=== PATIENT | female | born 1975 | race Caucasian/White ===

== ENCOUNTER 2020-02-15 15:45 | Outpatient (CLI) | payer OTHER, SELFPAY ==
--- NOTE | ~2020-02-15 | MM_ITS ---
EXAMINATION: MM screening cristóbal BI w vern HISTORY: Screening TECHNIQUE: Craniocaudal and mediolateral oblique 3-D tomosynthesis images were obtained and synthetic 2-D images were generated. CAD analysis was submitted and interpreted. COMPARISON: Comparison to multiple prior studies sequentially, with oldest reviewed study dated 05/2017. BREAST PARENCHYMAL COMPOSITION: The breasts are extremely dense, which lowers the sensitivity of mamm ography. FINDINGS: There is no evidence of suspicious mass, calcification, or architectural distortion to sugg est malignancy in either breast. There has been no suspicious interval change. IMPRESSION: 1. No mammographic evidence of malignancy. 2. Recommend routine screening mammography in one year. BI-RADS Category 1: Negative Reviewed, dictated and finalized at location A.
== END 2020-02-15 15:46 | disposition home or self-care (01) ==
LOC: ANHIMG 15:47
PROVIDERS: PCP Internal Medicine; Visit Provider Obstetrics & Gynecology
DX: Z12.31 Encounter for screening mammogram for malignant neoplasm of breast (principal)
CPT/HCPCS: 77063; 77067

== ENCOUNTER 2021-02-16 15:44 | Outpatient (CLI) | payer OTHER, SELFPAY ==
--- NOTE | ~2021-02-16 | MM_ITS ---
EXAMINATION: MM screening cristóbal BI w vern HISTORY: Screening mammogram TECHNIQUE: Craniocaudal and mediolateral oblique 3-D tomosynthesis images were obtained and synthetic 2-D images were generated. CAD analysis was submitted and interpreted. COMPARISON: 02/15/2020, 01/20/2019, 12/10/2017 bilateral digital screening mammogram examinations BREAST PARENCHYMAL COMPOSITION: The breasts are heterogeneously dense, which may obscure small masses . FINDINGS: There is no evidence of suspicious mass, calcification, or architectural distortion to sugg est malignancy in either breast. There has been no suspicious interval change. IMPRESSION: 1. No mammographic evidence of malignancy. 2. Recommend routine screening mammography in one year. BI-RADS Category 1: Negative Reviewed, dictated and finalized at location A.
== END 2021-02-16 15:45 | disposition home or self-care (01) ==
LOC: ANHIMG 15:47
PROVIDERS: PCP Internal Medicine; Visit Provider Obstetrics & Gynecology
DX: Z12.31 Encounter for screening mammogram for malignant neoplasm of breast (principal)
CPT/HCPCS: 77063; 77067

== ENCOUNTER 2022-02-20 15:55 | Outpatient (CLI) | payer OTHER, SELFPAY ==
--- NOTE | ~2022-02-20 | MM_ITS ---
EXAMINATION: MM screening cristóbal BI w vern HISTORY: Screening TECHNIQUE: Craniocaudal and mediolateral oblique 3-D tomosynthesis images were obtained and synthetic 2-D images were generated. CAD analysis was submitted and interpreted. COMPARISON: Comparison to multiple prior studies sequentially, with oldest reviewed study dated 01/20. BREAST PARENCHYMAL COMPOSITION: The breasts are extremely dense, which lowers the sensitivity of mamm ography FINDINGS: There is a focal asymmetry with possible architectural distortion in the central aspect of the right breast on CC view, posteriorly. This is not well visualized on the MLO view. There are asym metry superiorly in the left breast on MLO view only. IMPRESSION: 1. New bilateral breast asymmetries. 2. Additional mammographic views and possible breast ultrasound are recommended. BI-RADS Category 0: Incomplete: Needs additional imaging evaluation. Reviewed, dictated and finalized at location A. IMPRESSION: 1. New bilateral breast asymmetries. 2. Additional mammographic views and possible breast ultrasound are recommended . BI-RADS Category 0: Incomplete: Needs additional imaging evaluation.
== END 2022-02-20 15:56 | disposition home or self-care (01) ==
LOC: ANHIMG 15:58
PROVIDERS: PCP Internal Medicine; Visit Provider Obstetrics & Gynecology
DX: Z12.31 Encounter for screening mammogram for malignant neoplasm of breast (principal); R92.8 Other abnormal and inconclusive findings on diagnostic imaging of breast
CPT/HCPCS: 77063; 77067

== ENCOUNTER 2022-03-01 13:02 | Outpatient (CLI) | payer OTHER, SELFPAY ==
--- NOTE | ~2022-03-01 | MMUS_ITS ---
EXAMINATION: MM diagnostic cristóbal BI w vern, US breast BI complete HISTORY: Follow-up breast asymmetries TECHNIQUE: Additional 3-D tomosynthesis images of the breasts were performed and synthetic 2-D images were generated. CAD analysis was submitted and interpreted. High resolution bilateral complete breas t ultrasound was performed. COMPARISON: Comparison to multiple prior studies sequentially, with oldest reviewed study dated 05/2017. BREAST PARENCHYMAL COMPOSITION: The breasts are extremely dense, which lowers the sensitivity of mamm ography FINDINGS: MAMMOGRAPHIC FINDINGS: And there are no suspicious masses, calcifications or architectural distortion in either breast to meadows ggest malignancy. Bilateral breast asymmetries compress with spot views. ULTRASOUND: Complete bilateral US of all 4 quadrants of the breasts and retroareolar region was reviewed. Normal heterogeneous echotexture throughout the right breast. In the left breast at 1:00, 4 cm from the nipp le there is a 3 mm cyst. No suspicious masses are identified in the left breast to suggest malignancy . IMPRESSION: 1. No evidence for malignancy in either breast. 2. Routine yearly screening mammogram and regular clinical breast examination are recommended. BI-RADS Category 2: Benign finding(s). Reviewed, dictated and finalized at location A. IMPRESSION: 1. No evidence for malignancy in either breast. 2. Routine yearly screening mammogram and regular clinical breast examination a re recommended. BI-RADS Category 2: Benign finding(s).
== END 2022-03-01 13:03 | disposition home or self-care (01) ==
LOC: ANHIMG 13:04
PROVIDERS: PCP Nurse Practitioner; Visit Provider Obstetrics & Gynecology
DX: R92.8 Other abnormal and inconclusive findings on diagnostic imaging of breast (principal)
CPT/HCPCS: 76641; 77062; 77066; G0279

== ENCOUNTER 2023-12-03 15:21 | Outpatient (CLI) | payer OTHER, SELFPAY ==
--- NOTE | ~2023-12-03 | MM_ITS ---
EXAMINATION: MM screening cristóbal BI w vern HISTORY: Screening TECHNIQUE: Craniocaudal and mediolateral oblique 3-D tomosynthesis images were obtained and synthetic 2-D images were generated. CAD analysis was submitted and interpreted. COMPARISON: Comparison to multiple prior studies sequentially, with oldest reviewed study dated 05/2017. BREAST PARENCHYMAL COMPOSITION: Dense: The breasts are heterogeneously dense, which may obscure small masses FINDINGS: There is no evidence of suspicious mass, calcification, or architectural distortion to sugg est malignancy in either breast. There has been no suspicious interval change. IMPRESSION: 1. No mammographic evidence of malignancy. 2. Recommend routine screening mammography in one year. BI-RADS Category 1: Negative Reviewed, dictated and finalized at location B.
== END 2023-12-03 15:22 | disposition home or self-care (01) ==
PROVIDERS: PCP Nurse Practitioner; Visit Provider Nurse Practitioner Family
DX: Z12.31 Encounter for screening mammogram for malignant neoplasm of breast (principal)
CPT/HCPCS: 77063; 77067

== ENCOUNTER 2025-01-17 15:10 | Outpatient (CLI) | payer OTHER, SELFPAY ==
--- OUTSIDE RECORDS SUMMARY | 2017-12-10 | XMS_ITS | Encounter Summary ---
Author Organization [facility] Healthcare Address [address] [place] [address] Care Team Providers Care Rn Visiting Name Role Phone Unavailable Primary Care Provider Unavailabl e Reason for Visit * Diagnostic Imaging (Routine) - Closed Specialty Diagnoses / Procedures Referred By Maurisio lundberg Referred To Contact Procedures Breast Imaging Screening Outside Reference Sudheer Palomo NP Phone: tel: fax: Referral ID Status Reason Start Date Expiration Date Visits Re quested Visits Authorized [id number] Closed 04/23/2022 05/23/2023 1 1 Encounter Details Date Type Department Care Team (Late st Contact Info) Description 12/10/2017 Hospital Encounter [facility] [address] [place] [id number] Social History Tobacco Use Types Packs/Day Years Used Date Smoking Tobacco: Never Smokeless Tobacco: Never AUDIT-C Answer Date Recorded Q1: How often do you have a drink containing alcohol? Never 11/22/2024 Q2: How many drinks containi ng alcohol do you have on a typical day when you are drinking? Patient does not drink Q3: How often do you have si x or more drinks on one occasion? Never 11/22/2024 PHQ-2 Answer Date Recorded PHQ-2 Total Score (If total score is 3 or more points, staff should administer the PHQ-9) 0 11/22/2024 Comments No Sex and Gender Information Value Date Recorded Sex Assigned at Not on file Legal Sex Female 8:55 AM PRESIDENT/[employer]IVE EXPERIENCES Gender Identity Female 05/16/2020 11:20 AM PRESIDENT[employer] Sexual Orientation Straight 05/16/2020 11 :20 AM PRESIDENT[employer]ENC[employer] documented as of this encounter Functional Status * AUDIT-C Score Answer Date of Assessment Author 0 11/22/2024 12:59 PM CDT Arianna Horn MA * Question Answer Date of Assessment Author Q1: How often do you have a drink containing alcohol? Never 11/22/2024 12:59 PM JENNIFERT Elena Horn MA Q2: How many drinks containing alcohol do you have on a typical day when you are drinking? Patient does not drink 11/22/2024 12:59 PM CDT Arianna Horn MA Q3: How often do you have six or more drinks on one occasion? Never 11/22/2024 12:59 PM JENNIFERT Elena Horn MA documented as of this encounter Plan of Treatment Not on file documented as of this encounter Procedures Procedure Name Priority Date/Time Associated Diagnosis Comments BREAST IMAGING MG SCREENING OUTSIDE REFERENCE Routine 12/10/2017 12:00 AM CDT documented in this encounter Results * Breast Imaging Screening Outside Reference (12/10/2017 12:00 AM CDT) Impressions [facility] - 04/23/2022 9:48 AM PRESIDENT[employer]ENC[employer] These images are for Reference purposes only and have not been reviewed by [facility] Radiology. There will be no report generated by a [facility] Radiologist. Narrative [facility] - 04/23/2022 9:48 AM PRESIDENT[employer] EXAMINATION: Images For Reference Purposes Only us Sudheer Palomo NP IMG MAMMO PROCEDURES Final Result [facility] documented in this encounter Visit Diagnoses Not on filedocumented in this encounter
--- OUTSIDE RECORDS SUMMARY | 2019-01-20 | XMS_ITS | Encounter Summary ---
Author Organization [facility] Healthcare Address [address] [place] [address] Care Team Providers Care Barber Shop Operator Name Role Phone Unavailable Primary Care Provider Unavailabl e Reason for Visit * Diagnostic Imaging (Routine) - Closed Specialty Diagnoses / Procedures Referred By Maurisio lundberg Referred To Contact Procedures Breast Imaging Screening Outside Reference Sudheer Palomo NP Phone: tel: fax: Referral ID Status Reason Start Date Expiration Date Visits Re quested Visits Authorized [id number] Closed 04/23/2022 05/23/2023 1 1 Encounter Details Date Type Department Care Team (Late st Contact Info) Description 01/20/2019 Hospital Encounter [facility]iology [facility] [address] [place] [id number] Social History Tobacco Use Types Packs/Day [...] on file Legal Sex Female 8:55 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 Radiology. There will be no report generated by a [facility] Radiologist. Narrative [facility] - 04/23/2022 9:48 AM TIRE GROOVER EXAMINATION: Images For Reference Purposes Only us Sudheer Palomo NP IMG MAMMO PROCEDURES Final Result [facility] documented in this encounter Visit Diagnoses Not on filedocumented in this encounter
--- OUTSIDE RECORDS SUMMARY | 2020-02-15 | XMS_ITS | Encounter Summary ---
Author Organization [facility] Healthcare Address [address] [place] [address] Care Team Providers Care Dietitian Helper Name Role Phone Unavailable Primary Care Provider Unavailabl e Reason for Visit * Diagnostic Imaging (Routine) - Closed Specialty Diagnoses / Procedures Referred By Maurisio lundberg Referred To Contact Procedures Breast Imaging Screening Outside Reference Sudheer Palomo NP Phone: tel: fax: Referral ID Status Reason Start Date Expiration Date Visits Re quested Visits Authorized [id number] Closed 04/23/2022 05/23/2023 1 1 Encounter Details Date Type Department Care Team (Late st Contact Info) Description 02/15/2020 Hospital Encounter [facility] Radiology [facility] [address] [place] [phone] Social History Tobacco Use Types Packs/Day [...] on file Legal 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 There will be no report generated by a [facility] Radiologist. Narrative [facility] - 04/23/2022 9:48 AM JET AIRCRAFT SERVICER EXAMINATION: Images For Reference Purposes Only us Sudheer Palomo NP IMG MAMMO PROCEDURES Final Result [facility] documented in this encounter Visit Diagnoses Not on filedocumented in this encounter
--- NOTE | ~2025-01-17 | MM_ITS ---
EXAMINATION: MM screening cristóbal BI w vern HISTORY: Screening TECHNIQUE: Craniocaudal and mediolateral oblique 3-D tomosynthesis images were obtained and synthetic 2-D images were generated. CAD analysis was submitted and interpreted. COMPARISON: Comparison to multiple prior studies sequentially, with oldest reviewed study dated , 12/10/2017 BREAST PARENCHYMAL COMPOSITION: The breasts are heterogeneously dense, which may obscure small masses. FINDINGS: There is no evidence of suspicious mass, calcification, or architectural distortion to suggest malignancy in either breast. IMPRESSION: 1. No mammographic evidence of malignancy. 2. Recommend routine screening mammography in one year. BI-RADS Category 1: Negative Reviewed, dictated and finalized at location B.
--- OUTSIDE RECORDS SUMMARY | 2025-01-17 15:13 | XMS_ITS | Clinical Summary ---
Author Organization [facility] Address [facility] [place] [address] Care Team Providers Care Mannequin Mold Maker Name Role Phone Unavailable Primary Care Provider Unavailabl e Allergies Active Allergy Reactions Criticality Noted Date Comments Codeine Itching Low 04/02/2005 Medications amphetamine-dextro amphetamine (ADDERALL) 20 MG tabletIndications: ADD (attention deficit disorder) without hyperactivity Take 1 tablet (20 mg total) by mouth 2 (two) times daily. Take 20mg in the morning and 20mg in the afternoon. May fill 08/06/24 60 tablet 5 Active levothyroxine (SYNTHROID) 75 MCG tabletIndications: Hypothyroidism, unspecified type TAKE 1 TABLET EVERY MORNING 90 tablet 5 Active buPROPion XL (WELLBUTRIN XL) 150 MG 24 hr tabletIndications: ADD (attention deficit disorder) without hyperactivity,Gene ralized anxiety disorder Take 1 tablet (150 mg total) by mouth daily. 90 tablet 1 5 Active sertraline (ZOLOFT) 50 MG tabletIndications: Generalized anxiety disorder TAKE 3 TABLETS DAILY 270 tablet 1 5 Active Active Problems Problem Noted Date Diagnosed Date Perimenopausal symptoms 08/30/2024 Overview (08/30/2024): Has noticed being more watson, not sleeping as well. Getting more right around her abdomen. She has an appointment coming up with her deli worker Dr. Sumner and will discuss further. She has tried [id number] supplements for perimenopausal symptoms. Assessment & Plan (08/30/2024 11:58 AM CDT): Encourage to focus on high-protein low-carb diet, encouraged to incorporate strength training into cardiovascular workouts as well. ADD (attention deficit disorder) without hyperac tivity 12/09/2016 Overview (08/30/2024): Chronic condition. Doing well with Adderall 20 mg twice a day and Wellbutrin 150 mg daily. Assessment & Plan (08/30/2024 12:01 PM CDT): Chronic condition. Controlled. No changes needed at this time. UDS will be completed today. Constipation 08/23/2013 Hypothyroid 08/23/2013 Overview (08/30/2024): Chronic condition. Controlled with levothyroxine 75 mcg daily. Assessment & Plan (08/30/2024 11:54 AM CDT): Chronic condition. Controlled. No changes needed at this time. Hyperlipemia 12/09/2006 Overview (08/30/2024): Diet controlled Assessment & Plan (08/30/2024 11:54 AM CDT): Encourage following a healthy well balance diet. Limit saturated and trans fats. Encourage to get plenty of lean meats in your diet and grilled fish. Recommend eating at least 2 servings of fruits and vegetables per day. Encourage to limit sugar, processed foods, and large amount of carbohydrates. Anxiety state 04/02/2005 Overview (08/30/2024): Chronic condition. Controlled with sertraline 150 mg daily. Denies SI/HI. Assessment & Plan (08/30/2024 11:53 AM CDT): Chronic condition, controlled. No changes needed at this time. Resolved Problems Problem Noted Date Diagnosed Date Resolved Date Insomnia 08/14/2016 08/30/2024 Encounters Date Type Department Care Team Description 10/25/2024 Orders Only [facility] Family Medicine - [place] [address] [place] [address] Cristina Goldberg NP from Last 3 Months Immunizations Immunization Administration Dates Next Due H1N1 Injectable 2009 Influenza 03/21/2009 Influenza (Generic) 02/18/2020, 5,04/12/2014,2011,02/13/2010,02/09/2009 Influenza Adult (Generic) 02/20/2022,06/2020,02/20/2020,2018,04/11/2017,05/22/2013 MODERNA COVID-19 (EMPLOYEE WELFARE MANAGER VARGHESE BLANQUITA), MRNA, LNP-S, PF, 50 MCG/ 0.25 ML DOSE 04/20/2021 PFIZER COVID-19 (ORIGINAL FORMULATION, PURPLE CAP) mRNA, LNP-S, PF, 30 MCG/0.3 ML DOSE 06/29/2020,06/05/2020 Tdap (Generic) 03/14/2011 Family History Medical History Relation Comments Heart Disease Father Cancer Maternal Grandmother Retardation/Learning Difficulties Son Relation Status Comments Father Maternal Grandmother Son Social History Tobacco Use Types Packs/Day Years Used Date Smoking Tobacco: Never Passive Smoke Exposure: Never Smokeless Tobacco: Never Tobacco Cessation:Counseling Given: No Alcohol Use Standard Drinks/Week Comments Not Currently 0 (1 standard drink = 0.6 oz pur e alcohol) PHQ-2 Answer Date Recorded Patient Health Questionnaire-2 Score 0 08/30/2024 Comments No Sex and Gender Information Value Date Recorded Sex Assigned at Female 08/30/2024 11:22 AM CDT Legal Sex Female 4:35 PM CDT Gender Identity Female 08/30/2024 11:22 AM CDT Sexual Orientation Not on file Last Filed Vital Signs Vital Sign Reading Time Taken Comments Blood Pressure 98/60 08/30/2024 11:25 AM CDT Pulse 58 08/30/2024 11:25 AM CDT Temperature 36.8 C (98.3 F) 08/30/2024 11:25 AM CDT Respiratory Rate 16 08/30/2024 11:25 AM CDT Oxygen Saturation 100% 08/30/2024 11:25 AM CDT Inhaled Oxygen Concentration - - Weight 58.1 kg (128 lb) 08/30/2024 11:25 AM CDT Height 165.1 cm (5' 5) 08/30/2024 11:25 AM CDT Body Mass Index 21.3 08/30/2024 11:25 AM CDT Plan of Treatment Health Maintenance Due Date Last Done Comments Cervical Cancer Screening Pa p Smear (Age 30 to 64) Every 3 Years 1977 Hepatitis B Vaccines (1 of 3 - 19+ 3-dose series) 1996 DTaP, Tdap and Td Vaccines ( 2 - Td or Tdap) 03/14/2021 03/14/2011 COVID-19 Vaccine (4 - 2024-2 6 season) 2025 04/20/2021, 06/29/2020, 06/05/2020 Annual Physical 08/30/2025 08/30/2024, 03/31/2023, 03/01/2022 Mammogram Screening 12/02/2025 12/03/2023, 03/01/2022 Colorectal Cancer Screening FIT-DNA (3 Years) 04/24/2026 04/24/2023, 04/24/2023 Cervical Cancer Screening Pa p with HPV Testing (Age 30 to 64) Every 5 Years 08/09/2029 08/09/2024, 06/25/2023 Cervical Cancer Screening wi HPV 08/09/2029 Hepatitis C Completed 03/09/2022 PHQ-2 (Physician [place]) Completed 08/30/2024 Meningococcal B Vaccine Aged Out No l onger eligible based on patient's age to complete this topic Meningococcal Vaccine Aged Out No leno lucy eligible based on patient's age to complete this topic Pneumococcal Vaccine: Pediatrics (0 to 5 Years) and At-Risk Patients (6 to 49 Years) Aged Out No longer eligible b ased on patient's age to complete this topic RSV Immunizations Under 20 Months Aged Out No longer eligible b ased on patient's age to complete this topic Procedures Procedure Name Priority Date/Time Associated Diagnosis Comments OUTSIDE CYTOPATH CERV/VAG INTERPRET (PAP) 08/09/2024 MAMMOGRAM GENERIC (SCAN ORDER) 12/03/2023 COLOGUARD (EXACT SCIENCE) Routine 04/24/2023 9:50 AM RESEARCH PROFESSOR OF BIOSTATISTICS Screen for colon cancer HEPATITIS C ANTIBODY W/RFX TO HCV RNA Routine 03/09/2022 8:45 AM CDT Need for hepatitis C screening test from Last 3 Months or Most Recently Relevant to Health Maintenance Results * PAP SMEAR WITH HPV (08/09/2024) 08/09/2024 [facility] Scanned SCANNING Final Resu lt * MAMMOGRAM GENERIC (SCAN ORDER) (12/03/2023) Anatomical Region Laterality Modality Other 12/03/2023 [employer] [facility] Scanned SCANNING Final Resu lt * COLOGUARD (EXACT SCIENCE) (04/24/2023 9:50 AM RESEARCH PROFESSOR OF BIOSTATISTICS) COLOGUARD RESULT Negative Negative [facility] (CLIA #:[id number]) Comment: NEGATIVE TEST RESULT. A negative Cologuard result indicates a low likelihood that a colorectal cancer (CRC) or advanced adenoma (adenomatous polyps with more advanced pre-malignant features) is present. The chance that a person with a negative Cologuard test has a colorectal cancer is less than 1 in 1500 (negative predictive value >99.9%) or has an advanced adenoma is less than 5.3% (negative predictive value 94.7%). These data are based on a prospective cross-sectional study of 10,000 individuals at average risk for colorectal cancer who were screened with both Cologuard and colonoscopy. (Jaimee Deng al, N Engl J Med 2014;370(14):6437-0371) The normal value (reference range) for this assay is negative. COLOGUARD RE-SCREENING RECOMMENDATION: Periodic colorectal cancer screening is an important part of preventive healthcare for asymptomatic individuals at average risk for colorectal cancer. Following a negative Cologuard result, the [place] Cancer Society and U.S. Multi-Society Task Force screening guidelines recommend a Cologuard re-screening interval of 3 years. References: [place] [employer] Guideline for Colorectal Cancer Screening: https://www.cancer.org/cancer/hciyl-jborjw-chjiid/zwbdbavat-lwfesvntz-uueumsq/ac s-rec ommendations.html.; Uli DK, Bebeto CR, Monica GregoryK, Colorectal Cancer Screening: Recommendations for Physicians and Patients from the U.S. Multi-Society Task Force on Colorectal Cancer Screening , Am J Gastroenterology 2017; 112:9340-2420. TEST DESCRIPTION: Composite algorithmic analysis of stool DNA-biomarkers with hemoglobin immunoassay. Quantitative values of individual biomarkers are not reportable and are not associated with individual biomarker result reference ranges. Cologuard is intended for colorectal cancer screening of adults of either sex, 45 years or older, who are at average-risk for colorectal cancer (CRC). Cologuard has been approved for use by the U.S. FDA. The performance of Cologuard was established in a cross sectional study of average-risk adults aged 50-84. Cologuard performance in patients ages 45 to 49 years was estimated by sub-group analysis of near-age groups. Colonoscopies performed for a positive result may find as the most clinically significant lesion: colorectal cancer [4.0%], advanced adenoma (including sessile serrated polyps greater than or equal to 1cm diameter) [20%] or non- advanced adenoma [31%]; or no colorectal neoplasia [45%]. These estimates are derived from a prospective cross-sectional screening study of 10,000 individuals at average risk for colorectal cancer who were screened with both Cologuard and colonoscopy. (Jaimee Deng al, N Engl J Med 2014;370(14):1420-0793.) Cologuard may produce a false negative or false positive result (no colorectal cancer or precancerous polyp present at colonoscopy follow up). A negative Cologuard test result does not guarantee the absence of CRC or advanced adenoma (pre-cancer). The current Cologuard screening interval is every 3 years. ([place] Cancer Society and U.S. Multi-Society Task Force). Cologuard performance data in a 10,000 patient pivotal study using colonoscopy as the reference method can be accessed at the following location: www.miLibris.Urge/results. Additional description of the Cologuard test process, warnings and precautions can be found at www.Shelfari.com. STOOL STOOL SPECIMEN / Unknown 04/24/2023 9:50 AM RESEARCH PROFESSOR OF BIOSTATISTICS 04/25/2023 6:36 PM RESEARCH PROFESSOR OF BIOSTATISTICS Cristina Goldberg CHIEF OF PLANNING BODY FLUIDS AND STOOLS OR DERABLES Final Result Performing Organization Address City/[facility]/ZIP Co de Phone Number [employer] ([facility]) [address] [place] [address], [facility] (CLIA #:[id number]) [address] [place] [address] * HEPATITIS C ANTIBODY W/RFX TO HCV RNA ([facility] ONLY) (03/09/2022 8:45 AM CDT) HEPATITIS C AB NON-REACTI VE NON-REACT AJITH [facility] SIGNAL TO CUTOFF 0.01 <[address] [facility] Comment: HCV antibody was non-reactive. There is no laboratory evidence of HCV infection. In most cases, no further action is required. However, if recent HCV exposure is suspected, a test for HCV RNA (test code 64243) is suggested. For additional information please refer to http://education.Just Sing It/faq/ZGV64b1 (This link is being provided for informational/ educational purposes only.) 03/09/2022 8:45 AM CDT 03/09/2022 8:46 AM CDT Narrative [facility] - 03/11/2022 4:22 PM CDT VARIFIED ALL INFO FASTING:YES FASTING: YES Cristina Goldberg CHIEF OF PLANNING LABORATORY Final Res ult Performing Organization Address City/[facility]/ZIP Co de Phone Number [facility] [address] [place] [phone] from Last 3 Months or Most Recently Relevant to Health Maintenance Insurance [facility]
--- OUTSIDE RECORDS SUMMARY | 2025-01-17 15:13 | XMS_ITS | Clinical Summary ---
Author Organization 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 Gender Identity Not on file Sexual Orientation Not on file Plan of Treatment Health Maintenance Due Date Last Done Comments Hepatitis C Virus (HCV) Screening 1977 TdaP Immunization 1977 Hepatitis B Immunization (1 of 3 - 19+ 3-dose series) 1996 Pap Smear 1998 Cervical Cancer Screening (CCS) 12/06/2007 HPV/Cotest 12/06/2007 Cologuard 2022 Colonoscopy 2022 Colorectal Cancer Screening 2022 Immunochemical Fecal Occult Blood 2022 Influenza Immunization (#1) 01/10/202502/09, 05/28/2018, 03/30/2015, Additional history exists SARS-COV-2 Immunization (2024- season) 2025 04/20/2021, 06/29/2020, 06/05/2020 Respiratory Syncytial Virus (RSV) Immunization (Adult) (1 - 1-dose 75+ series) 2052 Human Papillomavirus (HPV) Immunization Aged Out No longer eligible based on patient's age to complete this topic Meningococcal Immunization (ACWY) Aged Out No longer eligible based on patient's age to complete this topic Pneumococcal Immunization Combined Aged Out No longer eligible based on patient's age to complete this topic Rotavirus Immunization Aged Out No lo nger eligible based on patient's age to complete this topic
--- OUTSIDE RECORDS SUMMARY | 2025-01-17 15:13 | XMS_ITS | Encounter Summary ---
Author Organization [facility] Address 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 Female 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 Gender Identity Not on file Sexual Orientation Not on file documented as of this encounter Last Filed Vital Signs Vital Sign Reading Time Taken Comments Blood Pressure 110/70 12/09/2006 2:30 PM CDT Pulse - - Temperature - - Respiratory Rate - - Oxygen Saturation - - Inhaled Oxygen Concentration - - Weight 58.5 kg (129 lb) 12/09/2006 2:30 PM CDT Height 165.1 cm (5' 5) 12/09/2006 2:30 PM CDT Body Mass Index 21.47 12/09/2006 2:30 PM CDT documented in this encounter Plan of Treatment Not on file documented as of this encounter Visit Diagnoses Not on filedocumented in this encounter Care Teams Bicycle Racer Relationship Specialty Start Date End Date Gucci Zavala MD PCP - General 09/09/07 documented as of this encounter
--- OUTSIDE RECORDS SUMMARY | 2025-01-17 15:13 | XMS_ITS | Encounter Summary ---
Author Organization [facility] Address [address] [place] [address] Care Team Providers Care Bilingual Account Manager Name Role Phone Gucci Zavala MD Primary Care Provider [phone] Encounter Details Date Type Department Care Team (Late st Contact Info) Description 04/02/2005 Outpatient Historical [facility] Internal Medicine [address] [address] Gucci Zavala MD [address] [place] [phone] Social History Tobacco Use Types Packs/Day Years Used Date Smoking Tobacco: Never Assessed Comments Unknown Sex and Gender Information Value Date Recorded Sex Assigned at Not on file Legal Sex Female 3:21 AM FRUIT RANCHER Gender Identity Not on file Sexual Orientation Not on file documented as of this encounter Last Filed Vital Signs Vital Sign Reading Time Taken Comments Blood Pressure 112/70 04/02/2005 3:30 PM FRUIT RANCHER Pulse - - Temperature 36.4 C (97.6 F) 04/02/2005 3:30 PM FRUIT RANCHER Respiratory Rate - - Oxygen Saturation - - Inhaled Oxygen Concentration - - Weight 51.7 kg (114 lb) 04/02/2005 3:30 PM FRUIT RANCHER Height 165.1 cm (5' 5) 04/02/2005 3:30 PM FRUIT RANCHER Body Mass Index 18.97 04/02/2005 3:30 PM FRUIT RANCHER documented in this encounter Plan of Treatment Not on file documented as of this encounter Visit Diagnoses Not on filedocumented in this encounter Care Teams Bilingual Account Manager Relationship Specialty Start Date End Date Gucci Zavala MD PCP - General 09/09/07 documented as of this encounter
--- OUTSIDE RECORDS SUMMARY | 2025-01-17 15:14 | XMS_ITS | Encounter Summary ---
Author Organization [facility] Address [address] [place] [address] Care Team Providers Care Grain Elevator Motor Starter Name Role Phone Cristina Goldberg NP Primary Care Provider [phone] Encounter Details Date Type Department Care Team (Late st Contact Info) Description 09/13/2022 Urban [employer] Message Enc [facility] Medical Group Family Medicine - [place] [address] [facility] [address] [place] [phone] Cristina Goldberg, STEPHANI [address] [place] [address] Medication is out of stick Social History Tobacco Use Types Packs/Day Years Used Date Smoking Tobacco: Never Passive Smoke Exposure: Never Smokeless Tobacco: Never Alcohol Use Standard Drinks/Week Comments Not Currently 0 (1 standard drink = 0.6 oz pur e alcohol) PHQ-2 Answer Date Recorded PHQ-2 Score - If the patient scores above 3, please move on to questions 3-9 0 03/01/2022 Comments No Sex and Gender Information Value Date Recorded Sex Assigned at Female 08/30/2024 11:22 AM CDT Legal Sex Female 4:35 PM CDT Gender Identity Female 08/30/2024 11:22 AM CDT Sexual Orientation Not on file COVID-19 Exposure Response Date Recorded In the last 10 days, have yo u been in contact with someone who was confirmed or suspected to have Coronavirus/COVID-19? No / Unsure 09/13/2022 8:01 AM CDT documented as of this encounter Plan of Treatment Not on file documented as of this encounter Visit Diagnoses Not on filedocumented in this encounter Additional Health Concerns Assessment Noted Time PHQ-9 Depression Total Score: 4 03/01/20 22 11:15 AM CDT documented as of this encounter Care Teams Grain Elevator Motor Starter Relationship Specialty Start Date End Date Cristina Goldberg NP [address] [place] [address] PCP - General NURSE PRACTITIONER 02/27/22 10/31/24 documented as of this encounter
--- OUTSIDE RECORDS SUMMARY | 2025-01-17 15:14 | XMS_ITS | Encounter Summary ---
Author Organization [facility] Address [address] [place] [address] Care Team Providers Care Commercial Hvac Technician Name Role Phone Cristina Goldberg NP Primary Care Provider [phone] Encounter Details Date Type Department Care Team (Late st Contact Info) Description 09/24/2023 [employer] Message Enc [facility] Medical Group Family Medicine - [place] [address] [facility] [address] [place] [phone] Cristina Goldberg NP [address] [place], [place] [id number] Bupropion rx Social History Tobacco Use Types Packs/Day Years Used Date Smoking Tobacco: Never Passive Smoke Exposure: Never Smokeless Tobacco: Never Alcohol Use Standard Drinks/Week Comments Not Currently 0 (1 standard drink = 0.6 oz pur e alcohol) PHQ-2 Answer Date Recorded Patient Health Questionnaire-2 Score 0 03/31/2023 Comments No Sex and Gender Information Value Date Recorded Sex Assigned at Female 08/30/2024 11:22 AM CDT Legal Sex Female 4:35 PM CDT Gender Identity Female 08/30/2024 11:22 AM CDT Sexual Orientation Not on file documented as of this encounter Plan of Treatment Not on file documented as of this encounter Visit Diagnoses Not on filedocumented in this encounter Additional Health Concerns Assessment Noted Time PHQ-9 Depression Total Score: 3 03/31/20 23 1:35 PM BASTING CLEANER documented as of this encounter Care Teams Commercial Hvac Technician Relationship Specialty Start Date End Date Cristina Goldberg NP [address] [place] [address] PCP - General NURSE PRACTITIONER 02/27/22 10/31/24 documented as of this encounter
--- OUTSIDE RECORDS SUMMARY | 2025-01-17 15:14 | XMS_ITS | Clinical Summary ---
Author Organization [facility] Address [address] [place] [address] Care Team Providers Care Rock Worker Name Role Phone Gucci Zavala MD Primary Care Provider [phone] Allergies Active Allergy Reactions Criticality Noted Date Comments Codeine Itching Low 04/02/2005 Medications fluticasone (FLONASE) 50 mcg/spray [place], Suspension Administer 2 Sprays in each nostril daily. 16 Gram 3 4 Active clotrimazole-be tamethasone (LOTRISONE) 1-0.05 % Cream Apply to affected area 2 times daily Bid neck. 45 Gram 1 9 Active sertraline (ZOLOFT) 50 mg tablet Take 4 Tablets (200 mg) by mouth daily. 360 Tablet 3 1 Active LEVOTHYROXINE 75 mcg tablet TAKE 1 TABLET DAILY EARLY IN THE MORNING 90 Tablet 3 2 Active busPIRone (BUSPAR) 10 mg tablet Take 1 Tablet (10 mg) by mouth 2 times daily. 60 Tablet 3 2 Active Active Problems Patient Care Coordination No te Formatting of this note migh t be different from the original. 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 tivity 12/09/2016 Insomnia 08/14/2016 Hypothyroid 08/23/2013 Constipation 08/23/2013 Hyperlipemia 12/09/2006 Anxiety state 04/02/2005 Resolved Problems Problem Noted Date Diagnosed Date Resolved Date ADD (attention deficit disorder) 11/23/2014 12/09/2016 ADHD (attention deficit hype ractivity disorder) 10/21/2013 11/23/2014 Chest pain 11/04/2007 03/14/2011 Malaise and fatigue 11/04/2007 09/16/19 13 Cold intolerance 11/04/2007 03/14/2011 Dysphagia 11/04/2007 03/14/2011 Routine general medical exam ination at a health care facility 12/09/2006 03/14/2011 state, incidental 12/09/2006 0 11/04/2007 Acute sinusitis, unspecified 04/02/2005 11/04/2007 Immunizations Immunization Administration Dates Next Due (ADACEL/BOOSTRIX)(10 YR UP) TDAP VACCINE, 0.5ML, IM 03/14/2011 (PFIZER)(12 YR UP) COVID-19 VACCINE - EMERGENCY USE AUTHORIZATION, MRNA, [id number](PF) 30 MCG/0.3 ML IM SUSP 06/29/2020,06/05/2020 INFLUENZA VACCINE QUADRIVALE NT 3 YR UP PF IM 02/20/2020 INFLUENZA VACCINE QUADRIVALE NT 6 MOS UP CELL DERIVED IM 05/28/2018 INFLUENZA VACCINE QUADRIVALE NT 6 MOS UP PF IM 03/13/2021,04/11/2017 Influenza A (H1N1) Vaccine IM 03/21/2009 Influenza Seasonal Unspecifi ed Formulation IM 02/18/2020,04/11/2014,05/12/2013,2009,02/09/2009 Influenza Vaccine Split 3+ Yrs IM 03/17/2012 Family History Medical History Relation Name Comments Heart Disease Father Relation Name Status Comments Father Social History Tobacco Use Types Packs/Day Years Used Date Smoking Tobacco: Never Smokeless Tobacco: Never Tobacco Cessation:Counseling Given: No Alcohol Use Standard Drinks/Week Comments No 0 (1 standard drink = 0.6 oz pur e alcohol) Comments No Sex and Gender Information Value Date Recorded Sex Assigned at Not on file Legal Sex Female 3:21 AM SHOE STITCHER ODD Gender Identity Not on file Sexual Orientation Not on file Last Filed Vital Signs Vital Sign Reading Time Taken Comments Blood Pressure 120/80 07/17/2021 4:30 PM SHOE STITCHER ODD Pulse 55 07/17/2021 4:30 PM SHOE STITCHER ODD Temperature 36.1 C (97 F) 07/17/2021 4:30 PM SHOE STITCHER ODD Respiratory Rate - - Oxygen Saturation 99% 07/17/2021 4:30 PM SHOE STITCHER ODD Inhaled Oxygen Concentration - - Weight 55.3 kg (122 lb) 07/17/2021 4:30 PM SHOE STITCHER ODD Height 165.1 cm (5' 5) 07/17/2021 4:30 PM SHOE STITCHER ODD Body Mass Index 20.3 07/17/2021 4:30 PM SHOE STITCHER ODD Plan of Treatment Health Maintenance Due Date Last Done Comments HEPATITIS B VACCINES (1 of 3 - 19+ 3-dose series) 1996 HPV/Cotest (21-29) 1998 HPV/Cotest (30-65) 12/06/2007 CERVICAL CANCER SCREENING 11/09/2019 PAP SMEAR 11/09/2019 11/08/2016, 10/10/2010 DTAP/TDAP/TD VACCINES (2 - T d or Tdap) 03/14/2021 03/14/2011 COLORECTAL SCREENING 2022 Colorectal Cancer Screening 2022 FIT-DNA Q 3 years 2022 FIT/FOBT Q 1 year 2022 Flex Sig/CT Colonography Q 5 years 2022 BREAST CANCER SCREENING 02/20/2023 02/21/20 22, 02/16/2021, 02/15/2020, Additional history exists Preventative Visit- Commercial 05/12/2024 1 , 07/17/2021, 03/13/2021, Additional history exists INFLUENZA VACCINE (#1) 2024 , 02/20/2020, 02/18/2020, Additional history exists COVID-19 Vaccine ( - 2024-2 6 season) 2025 04/20/2021, 06/29/2020, 06/05/2020 Procedures Procedure Name Priority Date/Time Associated Diagnosis Comments MAMMO 3D LIAM SCREEN BILAT W OR WO CAD Routine 02/20/2022 from Last 3 Months or Most Recently Relevant to Health Maintenance Results * MAMMO SCRN BILAT 3D LIAM W OR WO CAD (02/20/2022) Anatomical Region Laterality Modality Breast Bilateral Mammography us Abstract Provider MAMMO ORDERABLES Edited Result - Final from Last 3 Months or Most Recently Relevant to Health Maintenance Insurance [employer] PPO [id number] [employer] Care Teams Rock Worker Relationship Specialty Start Date End Date Gucci Zavala MD PCP - General 09/09/07
--- OUTSIDE RECORDS SUMMARY | 2025-01-17 15:14 | XMS_ITS | Encounter Summary ---
Author Organization [facility] Address [address] [place] [address] Care Team Providers Care Project Safety Manager Name Role Phone Cristina Goldberg NP Primary Care Provider [phone] Encounter Details Date Type Department Care Team (Late st Contact Info) Description 03/15/2024 Microlaunchers Message Enc [facility] Medical Group Family Medicine - [place] [address] [facility] [address] [place] [address] [phone] Cristina Goldberg, STEPHANI [address] [place] [address] [place] [address] Medication refill Social History Tobacco Use Types Packs/Day Years Used Date Smoking Tobacco: Never Passive Smoke Exposure: Never Smokeless Tobacco: Never Alcohol Use Standard Drinks/Week Comments Not Currently 0 (1 standard drink = 0.6 oz pur e alcohol) PHQ-2 Answer Date Recorded Patient Health Questionnaire-2 Score 1 02/26/2024 Comments No Sex and Gender Information Value Date Recorded Sex Assigned at Female 08/30/2024 11:22 AM CDT Legal Sex Female 4:35 PM CDT Gender Identity Female 08/30/2024 11:22 AM CDT Sexual Orientation Not on file documented as of this encounter Progress Notes * Rosa Mock MD - 03/15/2024 11:57 AM CST Sent please notify IOLOGY NURSE documented in this encounter Plan of Treatment Not on file documented as of this encounter Visit Diagnoses Diagnosis ADD (attention deficit disorder) without hyperactivity Attention deficit disorder without mention of hyperactivity documented in this encounter Additional Health Concerns Assessment Noted Time PHQ-9 Depression Total Score: 3 03/31/20 23 1:35 PM CARDIOLOGY NURSE documented as of this encounter Care Teams Project Safety Manager Relationship Specialty Start Date End Date Cristina Goldberg NP [address] [place] [address] PCP - General NURSE PRACTITIONER 02/27/22 10/31/24 documented as of this encounter
--- OUTSIDE RECORDS SUMMARY | 2025-01-17 15:14 | XMS_ITS | Encounter Summary ---
Author Organization [facility] Address [address] [place] [address] Care Team Providers Care Human Factors Specialist Name Role Phone Cristina Goldberg NP Primary Care Provider [phone] Encounter Details Date Type Department Care Team (Late st Contact Info) Description 12/14/2022 Stor Networks Message Enc [facility] Medical Group Family Medicine - [place] [address] [facility] [address] [place] [address] [phone] Cristina Goldberg NP [address] [place] [address] [place] [address] Generic Synthroid Social History Tobacco Use Types Packs/Day Years [...] Time PHQ-9 Depression Total Score: 4 03/01/20 11:15 AM CDT documented as of this encounter Care Teams Human Factors Specialist Relationship Specialty Start Date End Date Cristina Goldberg NP [address] [place] [address] [place] [address] PCP - General NURSE PRACTITIONER 02/27/22 10/31/24 documented as of this encounter
--- OUTSIDE RECORDS SUMMARY | 2025-01-17 15:14 | XMS_ITS | Encounter Summary ---
Author Organization [facility] Address [address] [place] [address] Care Team Providers Care Latex Dipper Name Role Phone Cristina Goldberg NP Primary Care Provider [phone] Encounter Details Date Type Department Care Team (Late st Contact Info) Description 02/25/2024 Cellworks Message Enc [facility] Medical Group Family Medicine - [place] [address] [facility] [address] [place] [address] [phone] Cristina Goldberg, STEPHANI [address] [place] [address] [place] [address] Trying to schedule appointment Social History Tobacco Use Types Packs/Day Years [...] on file documented as of this encounter Functional Status * Over the past 2 weeks, how often have you been bothered by any of the following problems? Question Answer Date of Assessment Author Status Little interest or pleasure in doing things Not at all 02/26/2024 2:52 PM CDT Lisette Baker MA Acti ve Feeling down, depressed, or hopeless Several days 02/26/2024 2:52 PM CDT Lisette Baker MA Active Patient Health Questionnaire-2 Score 1 02/26/2024 2:52 PM CDT Lisette Baker M A Active * If you checked off any problems on this questionnaire so far, Question Answer Date of Assessment Author Status How difficult have these problems made it for you to do your work, take care of things at home, or get along with other people? Not difficult at all 02/26/2024 2:52 PM CDT Lisette Baker MA Active documented as of this encounter Plan of Treatment Not on file documented as of this encounter Visit Diagnoses Not on filedocumented in this encounter Additional Health Concerns Assessment Noted Time PHQ-9 Depression Total Score: 3 03/31/20 23 1:35 PM DENTAL RESIDENT documented as of this encounter Care Teams Latex Dipper Relationship Specialty Start Date End Date Cristina Goldberg NP [address] [place] [address] PCP - General NURSE PRACTITIONER 02/27/22 10/31/24 documented as of this encounter
--- OUTSIDE RECORDS SUMMARY | 2025-01-17 15:14 | XMS_ITS | Encounter Summary ---
Author Organization [facility] Address [address] [place] [address] Care Team Providers Care Dispensing Optician Apprentice Name Role Phone Cristina Goldberg NP Primary Care Provider [phone] Encounter Details Date Type Department Care Team (Late st Contact Info) Description 05/10/2024 ModusP Message Enc [facility] Medical Group Family Medicine - [place] [address] [facility] [address] [place] [address] [phone] Cristina Goldberg NP [address] [place] [address] [place], [place] [address] Medication refill Social History Tobacco Use Types [...] Total Score: 3 03/31/20 23 1:35 PM SURGERY CENTER ADMINISTRATOR documented as of this encounter Care Teams Dispensing Optician Apprentice Relationship Specialty Start Date End Date Cristina Goldberg NP [address] [place] [address] [place] [address] PCP - General NURSE PRACTITIONER 02/27/22 10/31/24 documented as of this encounter
--- OUTSIDE RECORDS SUMMARY | 2025-01-17 15:14 | XMS_ITS | Encounter Summary ---
Author Organization [facility] Address [address] [place] [address] Care Team Providers Care Mapping Supervisor Name Role Phone Cristina Goldberg NP Primary Care Provider [phone] Encounter Details Date Type Department Care Team (Late st Contact Info) Description 02/13/2024 Mambu Message Enc [facility] Medical Group Family Medicine - [place] [address] [facility] [address] [place] [address] [phone] Cristina Goldberg NP [address] [place] [address] [place], [place] [address] six month follow up Social History Tobacco Use Types Packs/Day Years [...] Total Score: 3 03/31/20 23 1:35 PM FIRMWARE ENGINEER documented as of this encounter Care Teams Mapping Supervisor Relationship Specialty Start Date End Date Cristina Goldberg NP [address] [place] [address] PCP - General NURSE PRACTITIONER 02/27/22 10/31/24 documented as of this encounter
--- OUTSIDE RECORDS SUMMARY | 2025-01-17 15:14 | XMS_ITS | Encounter Summary ---
Author Organization [facility] Address [address] [place] [address] Care Team Providers Care Supervisor Paste Plant Name Role Phone Cristina Goldberg NP Primary Care Provider [phone] Encounter Details Date Type Department Care Team (Late st Contact Info) Description 04/08/2023 Keep Your [facility] Open Message Enc [facility] Medical Group Family Medicine - [place] [address] [facility] [address] [place] [address] [phone] Cristina Goldberg NP [address] [place] [address] [place], [place] [address] Test results Social History Tobacco Use Types Packs/Day Years [...] Total Score: 3 03/31/20 23 1:35 PM TIRE CURER documented as of this encounter Care Teams Supervisor Paste Plant Relationship Specialty Start Date End Date Cristina Goldberg NP [address] [place] [address] PCP - General NURSE PRACTITIONER 02/27/22 10/31/24 documented as of this encounter
--- OUTSIDE RECORDS SUMMARY | 2025-01-17 15:14 | XMS_ITS | Clinical Summary ---
Author Organization [facility] Address On license of [facility] [place] [address] Care Team Providers Care Drawer In Stitch Bonding Machine Name Role Phone Navi Regalado MD Unavailable [phone] Brooke Gonzales MD Primary Care Provider [phone] Allergies Active Allergy Reactions Criticality Noted Date Comments Codeine Itching,Rash Medium 04/02/2005 Medications ergocalciferol (VITAMIN D) 50,000 unit capsule TAKE 1 CAPSULE BY MOUTH WEEKLY FOR 12 WEEKS 11/10/19 25 Active Lyllana 0.075 mg/24 hr APPLY 1 PATCH TRANSDERMALLY TWICE A WEEK 11/17/19 25 Active progesterone (PROMETRIUM) 100 mg capsule TAKE 1 CAPSULE BY MOUTH EVERY DAY AT BEDTIME FOR 90 DAYS 11/17/19 25 Active levothyroxine (Synthroid) 75 mcg tablet Take 1 tablet (75 mcg total) by mouth case therapist before breakfast 90 tablet 1 11/30/19 25 Active buPROPion XL (WELLBUTRIN XL) 150 mg 24 hr tablet Take 1 tablet (150 mg total) by mouth daily 90 tablet 1 11/30/19 25 Active sertraline (ZOLOFT) 50 mg tablet Take 3 tablets (150 mg total) by mouth daily 270 tablet 1 12/25/19 25 Active dextroamphetam ine-amphetamin e (AdderalL) 20 mg tablet Take 1 tablet (20 mg total) by mouth 2 (two) times a day Take 1 tablet by mouth in the morning and 1 tablet by mouth at Noon (12:00 p.m.) 60 tablet 12/31/19 25 Active dextroamphetam ine-amphetamin e (AdderalL) 20 mg tablet Take 1 tablet (20 mg total) by mouth 2 (two) times a day Take 1 tablet by mouth in the morning and 1 tablet by mouth at Noon (12:00 p.m.) 60 tablet 12/04/19 25 025 Discontin ued(Reord er) Active Problems Problem Noted Date Diagnosed Date Perimenopausal symptoms 11/22/2024 Assessment & Plan (11/22/2024 1:31 PM CDT): - Patient is complaining of symptoms consistent with perimenopausal state on HRT with no issues so far - Advise patient to please inform me if she is no longer to tolerate the HRT and we can discuss other options such as switching SSRI - will also follow up on thyroid panel to see if some of weight gain concerns can be attributed to patient's hypothyroidism Routine adult health maintenance 09/16/2024 Assessment & Plan (09/16/2024 11:49 AM CDT): Well-appearing 48-year-old up-to-date on mammograms and Pap smears however never had a colonoscopy per records will send referral at this time ADD (attention deficit disorder) without hyperac tivity 12/09/2016 Insomnia 08/14/2016 Constipation 08/23/2013 Hypothyroid 08/23/2013 Assessment & Plan (09/16/2024 11:49 AM CDT): Chronic, stable continue levothyroxine 75 mcg daily Hyperlipemia 12/09/2006 Anxiety state 04/02/2005 Encounters Date Type Department Care Team Description 11/22/2024 1:00 PM CDT Office Visit [facility] Medical [facility] [place] [address] [facility] [address] [place] [address] Brooke Gonzales MD Perimenopausal symptoms (Primary Dx) 11/10/2024 Orders Only [facility] [address] [place] [address] Brooke Gonzales MD from Last 3 Months Immunizations Immunization Administration Dates Next Due H1N1 Inj 03/21/2009 Influenza, Quadrivalent, Cherry l Culture-based MDCK, Antibiotic Free, Intramuscular 05/28/2018 Influenza, Quadrivalent, Spl it, Intramuscular 02/20/2022 Influenza, Quadrivalent, Spl it, Preservative Free, Intramuscular 03/13/2021,02/20/2020,04/11/2017,05/22 Influenza, Trivalent, IM (MDV) 0,04/12/2014,05/12/2013,03/17,02/13/2010,02/09/2009 Influenza, Trivalent, Preser vative Free, Intramuscular 03/30/2015 Influenza, Unspecified 02/20/2022,2020,02/20/2020,02/17,05/28/2018,04/11/2017,03/30/2015 ,04/12/2014,05/22/2013,03/17/2012,09/2009,02/09/2009 Tdap 03/14/2011 Medical History Medical History Date Comments Anxiety Family History Medical History Relation Name Comments Developmental delay Son Peter Learning disabilities Son Peter Relation Name Status Comments Son Peter Alive Social History Tobacco Use Types Packs/Day Years Used Date Smoking Tobacco: Never Smokeless Tobacco: Never Tobacco Cessation:Counseling Given: Not Answered AUDIT-C Answer Date Recorded Q1: How often [...] on file Legal Sex Female 8:55 AM ATTORNEY GENERAL Gender Identity Female 05/16/2020 11:20 AM ATTORNEY GENERAL Sexual Orientation Straight 05/16/2020 11 :20 AM ATTORNEY GENERAL Obstetrics History Last Filed Vital Signs Vital Sign Reading Time Taken Comments Blood Pressure 112/64 11/22/2024 1:01 PM CDT Pulse 64 11/22/2024 1:01 PM CDT Temperature - - Respiratory Rate 20 11/22/2024 1:01 PM CDT Oxygen Saturation 100% 11/22/2024 1:01 PM CDT Inhaled Oxygen Concentration - - Weight 58.2 kg (128 lb 3.2 oz) 11/22/2024 1:01 P M CDT Height 165.1 cm (5' 5) 11/22/2024 1:01 PM CDT Body Mass Index 21.33 11/22/2024 1:01 PM CDT Plan of Treatment Health Maintenance Due Date Last Done Comments Cervical Cancer Screening 1977 Colon Cancer Screening-Colonoscopy 1977 Hepatitis C Screening 1977 Hepatitis B Screening 12/06/1995 DTaP/Tdap/Td Vaccine (2 - Td or Tdap) 03/14/2021 03/14/2011 Breast Cancer Screening-Mammogram 02/20/2023 02/20/2022, 09/24/2013 Covid-19 Vaccine ( season) 2025 04/20/2021, 06/29/2020, 06/05/2020 Influenza Vaccine (#1) 2025 , 02/20/2022, 03/13/2021, Additional history exists Regular Well Visit/Exam 18-64 09/16/2025 09/16/2024 Depression Screening 11/22/2025 11/22/2024, 09/17/19 25 Pneumococcal vaccine <65 Aged Out No longer eligible based on patient's age to complete this topic Procedures Procedure Name Priority Date/Time Associated Diagnosis Comments SCREENING MAMMOGRAM Routine 09/24/2013 1 0:23 AM CDT from Last 3 Months or Most Recently Relevant to Health Maintenance Results * Screening Mammogram (09/24/2013 10:23 AM CDT) Anatomical Region Laterality Modality Breast N/A Mammography 09/24/2013 10:2 3 AM CDT Narrative 09/27/2013 11:36 AM CDT RANJIT BERTRAND M.D. FINAL REPORT The radiology attending physician has personally reviewed this study, and has reviewed and/or edited this written report and agrees with it. ACC# Date Time Exam [id number] September 24, 2013 10:23:00 [facility] [address] Screening Mamm Bilat Technologist(s): Cherri Burdick; ; EXAMINATION: Mammogram Technique: Bilateral Full-Field Digital Screening Mammogram was performed. Views obtained: bilateral craniocaudal and bilateral mediolateral oblique. Computer Aided Detection was performed with morphCARD 1.3 version 9.3. Mammogram Findings: There are scattered fibroglandular densities. There is no suspicious abnormality in either breast. IMPRESSION: Annual screening mammography is recommended. OVERALL FINAL ASSESSMENT: BI-RADS CATEGORY 1: Negative. Requested By: NAVI REGALADO M.D. Dictated By: RANJIT BERTRAND M.D. on Sep 27 2013 11:36A This document has been electronically signed by: RANJIT BERTRAND M.D. on Sep 27 2013 11:36A Procedure Note Provider, MD Jayce - 09/04/2016 RANJIT BERTRAND M.D. FINAL REPORT The radiology attending physician has personally reviewed this study, and has reviewed and/or edited this written report and agrees with it. ACC# Date Time Exam [id number] September 24, 2013 10:23:00 [facility] [id number] Screening Mamm Bilat Technologist(s): Cherri Burdick; ; EXAMINATION: Mammogram Technique: Bilateral Full-Field Digital Screening Mammogram was performed. Views obtained: bilateral craniocaudal and bilateral mediolateral oblique. Computer Aided Detection was performed with Acclaimdova 1.3 version 9.3. Mammogram Findings: There are scattered fibroglandular densities. There is no suspicious abnormality in either breast. IMPRESSION: Annual screening mammography is recommended. OVERALL FINAL ASSESSMENT: BI-RADS CATEGORY 1: Negative. Requested By: NAVI REGALADO M.D. Dictated By: RANJIT EBRTRAND M.D. on Sep 27 2013 11:36A This document has been electronically signed by: RANJIT BERTRAND M.D. on Sep 27 2013 11:36A us Historical Provider MD LEOS MAMMO PROCEDURES Juani l Result from Last 3 Months or Most Recently Relevant to Health Maintenance Insurance [employer] PLUS [employer] PLUS Care Teams Drawer In Stitch Bonding Machine Relationship Specialty Start Date End Date Brooke Gonzales MD [address] [place] [address] PCP - General Family Medicine 09/16/24 [place]ado [place] [address] [address] Referring Physician Obstetrics and Gynecology 03/06/22
--- OUTSIDE RECORDS SUMMARY | 2025-01-17 15:14 | XMS_ITS | Encounter Summary ---
Author Organization [facility] Address [address] [place] [address] Care Team Providers Care Retail Event Coordinator Name Role Phone Cristina Goldberg NP Primary Care Provider [phone] Encounter Details Date Type Department Care Team (Late st Contact Info) Description 09/02/2023 Soleil Insulation Message Enc [facility] Medical Group Family Medicine - [place] [address] 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
--- OUTSIDE RECORDS SUMMARY | 2025-01-17 15:14 | XMS_ITS | Encounter Summary ---
Author Organization [facility] Address [address] [place] [address] Care Team Providers Care Music Autographer Name Role Phone Cristina Goldberg NP Primary Care Provider [phone] Encounter Details Date Type Department Care Team (Late st Contact Info) Description 06/08/[address] [facility] Medical Group Family Medicine - [place] [address] [facility] [address] [place] [address] [phone] Cristina Goldberg, STEPHANI [address] [place] [address] [place] [address] Medication refill Social History Tobacco Use Types [...] as of this encounter Progress Notes * Lisette Baker MA - 06/08/2024 4:02 PM CST Looks like there was a request sent to you yesterday. MS INVESTIGATOR documented in this encounter Plan of Treatment Not on file documented as of this encounter Visit Diagnoses Not on filedocumented in this encounter Additional Health Concerns Assessment Noted Time PHQ-9 Depression Total Score: 3 03/31/20 23 1:35 PM CLAIMS INVESTIGATOR documented as of this encounter Care Teams Music Autographer Relationship Specialty Start Date End Date Cristina Goldberg NP [address] [place] [address] PCP - General NURSE PRACTITIONER 02/27/22 10/31/24 documented as of this encounter
--- OUTSIDE RECORDS SUMMARY | 2025-01-17 15:14 | XMS_ITS | Encounter Summary ---
Author Organization [facility] Address [address] [place] [address] Care Team Providers Care Environmental Permitting Specialist Name Role Phone Cristina Goldberg NP Primary Care Provider [phone] Encounter Details Date Type Department Care Team (Late st Contact Info) Description 11/04/2023 Tag'By Message Enc [facility] Family Medicine - [place] [address] [facility] [address] [place] [address] [phone] Cristina Goldberg, STEPHANI [address] [place] [address] Sertraline refill Social History Tobacco Use Types Packs/Day [...] as of this encounter Progress Notes * Urszula Simmons MA - 11/04/2023 3:47 PM CDT Ok for a weeks worth of Sertraline? documented in this encounter Plan of Treatment Not on file documented as of this encounter Visit Diagnoses Not on filedocumented in this encounter Additional Health Concerns Assessment Noted Time PHQ-9 Depression Total Score: 3 03/31/20 23 1:35 PM HEAD CASHIER documented as of this encounter Care Teams Environmental Permitting Specialist Relationship Specialty Start Date End Date Cristina Goldberg NP [address] [place] [address] [place] [address] PCP - General NURSE PRACTITIONER 02/27/22 10/31/24 documented as of this encounter
--- OUTSIDE RECORDS SUMMARY | 2025-01-17 15:14 | XMS_ITS | Encounter Summary ---
Author Organization [facility] Address [address] [place] [address] Care Team Providers Care Hall Director Name Role Phone Cristina Goldberg NP Primary Care Provider [phone] Encounter Details Date Type Department Care Team (Late st Contact Info) Description 04/24/2023 [employer] Message Enc [facility] Family Medicine - [place] [address] [facility] [address] [place] [address] [phone] Cristina Goldberg NP [address] [place], [place] [address] Bupropion Social History Tobacco Use Types Packs/Day Years [...] Total Score: 3 03/31/20 23 1:35 PM CHIEF DRAFTER documented as of this encounter Care Teams Hall Director Relationship Specialty Start Date End Date Cristina Goldberg NP [address] [place] [address] PCP - General NURSE PRACTITIONER 02/27/22 10/31/24 documented as of this encounter
--- OUTSIDE RECORDS SUMMARY | 2025-01-17 15:14 | XMS_ITS | Encounter Summary ---
Author Organization [facility] Address [address] [place] [address] Care Team Providers Care Fur Stylist Name Role Phone Cristina Goldberg NP Primary Care Provider [phone] Encounter Details Date Type Department Care Team (Late st Contact Info) Description 04/30/2024 [employer] Message Enc [facility] Family Medicine - [place] [address] [facility] [address] [place] [phone] Cristina Goldberg NP [address] [place] [address] [place] [address] Medication Social History Tobacco Use Types Packs/Day Years [...] Total Score: 3 03/31/20 23 1:35 PM SPEECH LANGUAGE ASSISTANT documented as of this encounter Care Teams Fur Stylist Relationship Specialty Start Date End Date Cristina Goldberg NP [address] [place] [address] PCP - General NURSE PRACTITIONER 02/27/22 10/31/24 documented as of this encounter
== END 2025-01-17 15:11 | disposition home or self-care (01) ==
LOC: ANHFOHIMG 15:11
PROVIDERS: PCP Nurse Practitioner; Visit Provider Nurse Practitioner Family
DX: Z12.31 Encounter for screening mammogram for malignant neoplasm of breast (principal)
CPT/HCPCS: 77063; 77067